=== PATIENT | female | born 1955 | race Caucasian/White ===

== ENCOUNTER 2017-06-18 09:03 | Inpatient (IN) | payer OTHER ==
[~2017-06-18] VITALS: Ht 157.5 cm; Wt 61.2 kg
[~2017-06-18 09:03] MED LIST: ADVIL COLD & S1 EACH PO; CENTRUM WOMEN1 EACH PO; CITRACAL SOFT1 EACH PO
== END 2017-06-22 18:46 | disposition home or self-care (01) | DRG 581 ==
LOC: O/R 06-21 05:38 → SURG 06-21 05:38 → SURH 06-21 07:00 → SURG 06-21 18:36
PROVIDERS: Plastic Surgery; Surgery
PROC: 0HHT0NZ Insertion of Tissue Expander into Right Breast, Open Approach (ICD-10-PCS; 2017-06-21)
PROC: 07B50ZX Excision of Right Axillary Lymphatic, Open Approach, Diagnostic (ICD-10-PCS; principal; 2017-06-21 07:00)
PROC: 0HTT0ZZ Resection of Right Breast, Open Approach (ICD-10-PCS; 2017-06-21 07:00)
DX: C50.911 Malignant neoplasm of unspecified site of right female breast (principal); Z90.11 Acquired absence of right breast and nipple

== ENCOUNTER 2017-08-13 07:00 | Day surgery (SDC) | payer OTHER ==
[~2017-08-13] VITALS: Ht 154.9 cm; Wt 60.3 kg
[~2017-08-13 07:00] MED LIST changes: +CENTRUM ADULTS1 EACH PO; +CITRACAL + BON1 EACH PO; +VIT C PO
== END 2017-08-13 08:00 | disposition home or self-care (01) ==
LOC: CIR.AMB 07:00 → SURG 07:29 → O/R 07:29 → CIR.AMB 08:00 → SURG 08:45 → EDSTATUS 08:45 → SURG 10:02 → O/R 13:10
DX: C50.911 Malignant neoplasm of unspecified site of right female breast (principal); Z90.11 Acquired absence of right breast and nipple